=== PATIENT | female | born 1985 | race Caucasian/White ===

== ENCOUNTER → 2017-07-20 | Outpatient (CLI) | payer OTHER ==
[~2017-07-20] MED LIST: ACE3 PO; ALB17R INH; CODEINE COUGH SYRUP PO; HYDR2TAB42 PO; IBU800 PO; IBUP-1687 PO; IBUP800T37 PO; OXYC1TAB54 PO; PER PO; PREN-85 PO
--- NOTE | 2017-07-20 18:10 | RADIOLOGY IMAGING REPORT ---
FACILITY: [facility] [place] PATIENT NAME: Tete Sequeira : 1985 MR: [id number] V: [id number] EXAM DATE: ORDERING PHYSICIAN: ELIAS GARNER TECHNOLOGIST: Location: [facility] Patient: Tete Sequeira : 1985 Visit/Account:[id number] Date of Sevice: 07/20/2017 Exam type: CHEST PA AND LAT History: Asthma, tightness in chest worse over last six weeks Comparison: None. Findings: There is central peribronchial thickening bilaterally, left side more affected than the right. No lo bar consolidation identified. There is no evidence of pleural effusions or pneumothorax or pneumomed iastinum. The cardiac silhouette is normal in size. IMPRESSION: 1. Central peribronchial thickening bilaterally, left side more prominent than the right which can b e seen with asthma as the clinical history suggests Report Dictated By: Yenifer Mc MD at 07/20/2017 6:04 PM Report E-Signed By: Yenifer Mc MD at 07/20/2017 6:05 PM WSN:[id number]
== END ==
LOC: RAD 16:34
PROVIDERS: ATTEND Obstetrics & Gynecology
DX: J45.909 Unspecified asthma, uncomplicated (principal)
CPT/HCPCS: 71046

== ENCOUNTER → 2017-08-26 | Outpatient (CLI) | payer OTHER ==
[~2017-08-26] MED LIST changes: +ALB6.7R INH; +DIPH-740 PO
== END ==
LOC: LAB 08:23
PROVIDERS: ATTEND Otolaryngology
DX: Z91.018 Allergy to other foods (principal)
CPT/HCPCS: 36415; 86003

== ENCOUNTER → 2017-09-16 | Outpatient (CLI) | payer OTHER | LOC: LAB 13:47 | PROVIDERS: ATTEND Otolaryngology | DX: Z91.018 Allergy to other foods (principal) | CPT/HCPCS: 36415; 86003 ==